=== PATIENT | male | born 1995 | race Caucasian/White ===

== ENCOUNTER 2024-10-28 19:02 | Emergency (ER) | payer OTHER ==
[~2024-10-28] VITALS: Ht 167.6 cm; Wt 85.5 kg
[2024-10-28 19:04] VITALS: BP 128/74; PULSE 72; RESP 16; TEMP 98.4; O2SAT 100
[2024-10-28] MEDS: LIDOCAINE 1% 10 ML VIAL SQ ONE (20:48)
[2024-10-28] MEDS: PERTUSS(ACELL),DIPH,TET/PF 0.5 ML SYRINGE [ADULT] IM. ONE (21:39)
[2024-10-28] MEDS: BACITRACIN 28 GM OINTMENT TP ONE (23:17)
== END 2024-10-28 23:18 ==
LOC: EMS 19:02
DX: S01.511A Laceration without foreign body of lip, initial encounter (principal); S00.83XA Contusion of other part of head, initial encounter; X58.XXXA Exposure to other specified factors, initial encounter; Y93.89 Activity, other specified; Y92.89 Other specified places as the place of occurrence of the external cause; Y99.8 Other external cause status
CPT/HCPCS: 99285; 70450; 70486; 90715; 90471; 12011; J3490